=== PATIENT | female | born 1995 | race Caucasian/White ===

== ENCOUNTER 2021-01-18 12:36 | Emergency (ER) | payer OTHER ==
[2021-01-18 13:35] LABS: HEMOGLOBIN 13.8 gm/dl (12.3-15.3); RED BLOOD COUNT 4.64 M/UL (4.00-5.10)
[2021-01-18 14:03] LABS: BUN/CREATININE RATIO 15 (0-10)
== END 2021-01-18 15:03 | disposition home or self-care (01) ==
LOC: ER1 12:36
PROVIDERS: Physician Assistant
DX: O20.0 Threatened abortion (principal); Z3A.10 10 weeks gestation of pregnancy
CPT/HCPCS: 80053; 81001; 84702; 85025; 99284

== ENCOUNTER 2021-01-25 10:26 | Emergency (ER) | payer OTHER ==
[2021-01-25 11:24] LABS: HEMOGLOBIN 12.3 gm/dl (12.3-15.3); RED BLOOD COUNT 3.97 M/UL (4.00-5.10); WHITE BLOOD COUNT 8.3 K/UL (4.5-11.0)
[2021-01-25 11:53] LABS: BUN/CREATININE RATIO 15 (0-10)
== END 2021-01-25 17:17 | disposition home or self-care (01) ==
LOC: ER1 10:26
PROVIDERS: Student in an Organized Health Care Education/Training Program
DX: O03.9 Complete or unspecified spontaneous abortion without complication (principal); Z3A.11 11 weeks gestation of pregnancy
CPT/HCPCS: 76815; 80048; 84702; 85025; 99284

== ENCOUNTER → 2021-03-09 | Outpatient (CLI) | payer OTHER | LOC: LAB 14:43 | DX: Z32.00 Encounter for pregnancy test, result unknown (principal) | CPT/HCPCS: 84702 ==

== ENCOUNTER 2021-11-11 06:37 | Outpatient (CLI) | payer OTHER | END 2021-11-11 08:49 | disposition home or self-care (01) | LOC: GENOP 06:37 | DX: R31.9 Hematuria, unspecified (principal) | CPT/HCPCS: 81001; G0463 ==

== ENCOUNTER 2021-12-07 05:36 | Inpatient (IN) | payer OTHER ==
[~2021-12-07] VITALS: Ht 167.6 cm; Wt 116.1 kg
[2021-12-07] MEDS ORDERED: PRENATABS FA T1 EACH PO (06:58)
[2021-12-07] MEDS ORDERED: GLUCOPHAGE 500500 MG GT (06:59)
[2021-12-07 07:04] LABS: HEMOGLOBIN 13.6 gm/dl (12.3-15.3); RED BLOOD COUNT 4.39 M/UL (4.00-5.10); WHITE BLOOD COUNT 11.1 K/UL (4.5-11.0)
[2021-12-07] MEDS ORDERED: IBUPROFEN600 MG PO (18:56)
[2021-12-07] MEDS ORDERED: COLACE 100MG C100 MG PO (18:56)
[2021-12-08 05:54] LABS: HEMOGLOBIN 12.3 gm/dl (12.3-15.3)
== END 2021-12-09 17:37 | disposition home or self-care (01) | DRG 807 ==
LOC: OB 05:36
PROVIDERS: ADMIT Obstetrics & Gynecology
PROC: 10E0XZZ Delivery of Products of Conception, External Approach (ICD-10-PCS; principal; 2021-12-07)
PROC: 0KQM0ZZ Repair Perineum Muscle, Open Approach (ICD-10-PCS; 2021-12-07)
PROC: 10907ZC Drainage of Amniotic Fluid, Therapeutic from Products of Conception, Via Natural or Artificial Opening (ICD-10-PCS; 2021-12-07)
PROC: 4A1HXCZ Monitoring of Products of Conception, Cardiac Rate, External Approach (ICD-10-PCS; 2021-12-07)
PROC: 10H073Z Insertion of Monitoring Electrode into Products of Conception, Via Natural or Artificial Opening (ICD-10-PCS; 2021-12-07)
PROC: 10H07YZ Insertion of Other Device into Products of Conception, Via Natural or Artificial Opening (ICD-10-PCS; 2021-12-07)
PROC: 3E0234Z Introduction of Serum, Toxoid and Vaccine into Muscle, Percutaneous Approach (ICD-10-PCS; 2021-12-07)
DX: O24.425 Gestational diabetes mellitus in childbirth, controlled by oral hypoglycemic drugs (principal); Z37.0 Single live birth; Z3A.38 38 weeks gestation of pregnancy; Z20.822 Contact with and (suspected) exposure to COVID-19; O99.214 Obesity complicating childbirth; E66.9 Obesity, unspecified; Z86.73 Personal history of transient ischemic attack (TIA), and cerebral infarction without residual deficits; Z83.3 Family history of diabetes mellitus; Z80.8 Family history of malignant neoplasm of other organs or systems; O70.1 Second degree perineal laceration during delivery; Z23 Encounter for immunization
CPT/HCPCS: 81001; 82962; 85014; 85018; 85025; 90707; J1650; J1956; J2405; J2590